=== PATIENT | male | born 1950 | race Caucasian/White ===

== ENCOUNTER 2019-08-09 19:14 | Emergency (ER) | payer OTHER, BC ==
[~2019-08-09] VITALS: Ht 177.8 cm; Wt 81.6 kg
== END 2019-08-09 22:58 | disposition home or self-care (01) ==
LOC: ER 19:14
DX: S61.021A Laceration with foreign body of right thumb without damage to nail, initial encounter (principal); W26.8XXA Contact with other sharp object(s), not elsewhere classified, initial encounter; Y93.G3 Activity, cooking and baking; Y92.010 Kitchen of single-family (private) house as the place of occurrence of the external cause; Y99.8 Other external cause status